=== PATIENT | male | born 1970 | race Two or more races ===

== ENCOUNTER 2019-07-03 01:48 | Emergency (ER) | payer MEDICAID ==
[~2019-07-03] VITALS: Ht 177.8 cm; Wt 52.0 kg
[2019-07-03] MEDS ORDERED: TRANEXAMIC ACID 1,000 MG/10 ML IV SCH (02:30)
[2019-07-03] MEDS ORDERED: TRANEXAMIC ACID 1,000 MG/10 ML TP SCH (02:30)
[2019-07-03 03:09] LABS: HEMATOCRIT 31.6 % (42.0-52.0); HEMOGLOBIN 10.6 g/dL (14.0-18.0); MEAN CORPUSCULAR HEMOGLOBIN 31.7 pg (28.0-32.0); MEAN CORPUSCULAR VOLUME 94.7 fL (80.0-94.0); PLATELET 140 x1000/uL (130-400); RED BLOOD CELL COUNT 3.34 mill/uL (4.7-6.1); RED CELL DISTRIBUTION WIDTH 16.7 % (11.6-14.6)
[2019-07-03 03:15] LABS: CHLORIDE 100 mEq/L (98-107)
[2019-07-03 04:45] VITALS: BP 95/47
== END 2019-07-03 04:47 | disposition home or self-care (01) ==
LOC: ER 02:09
DX: N50.89 Other specified disorders of the male genital organs (principal); N18.6 End stage renal disease; Z99.2 Dependence on renal dialysis; Z88.6 Allergy status to analgesic agent; I50.9 Heart failure, unspecified
CPT/HCPCS: 36415; 85027; 99283